=== PATIENT | female | born 1975 | race Caucasian/White ===

== ENCOUNTER → 2020-01-20 | Outpatient (CLI) | payer OTHER ==
[~2020-01-20] MED LIST: B12INJ PO; CLARITIN10 MG PO; COLACE100 MG PO; ESTRADIOL 1 MG T1 M1 PO; FLAGYL500 MG PO; IBUPROFEN 400400 M2 PO; KLOR-CON 1010 MEQ PO; LASIX 20 MG TAB20 MG PO; LIORESAL 10 MG10 MG PO; LISINOPRIL2.5 MG PO; MAGNESIUM; MINOCIN100 MG PO; NASACORT10.8 ML NS; PHENTERMINE H37.5 MG PO; PRILOSEC20 MG PO; REGLAN 10 MG TA10 MG PO; TRAZODONE HCL100 MG PO; VIT C; VIT D; ZYRTEC10 MG PO
== END ==
LOC: RAD 08:14
DX: M47.812 Spondylosis without myelopathy or radiculopathy, cervical region (principal); M25.78 Osteophyte, vertebrae; M54.9 Dorsalgia, unspecified